=== PATIENT | female | born 1955 | race Caucasian/White ===

== ENCOUNTER 2022-05-14 04:32 | Day surgery (SDC) | payer OTHER, MEDICARE ==
[2022-05-10 09:04] VITALS: BMI 34.0
[~2022-05-14 04:32] MED LIST: BUPIVACAINE HCL/PF 0.5% (5MG/ML) 10 ML VIAL IJ ONE; IOHEXOL 180 MG/1 ML ML IJ ONE; LIDOCAINE HCL 1% PRESERVATIVE FREE - 30ML VIAL IJ ONE; TRIAMCINOLONE ACET 40MG/1ML VIAL IM ONE
[2022-05-14] MEDS ORDERED: TRIAMCINOLONE ACET 40MG/1ML VIAL ONE (07:12)
[2022-05-14] MEDS ORDERED: LIDOCAINE HCL/PF 1% SDV 5ML VIAL ONE (07:13)
[2022-05-14] MEDS ORDERED: BUPIVACAINE HCL/PF 0.5% (5MG/ML) 10 ML VIAL ONE (07:13)
[2022-05-14 11:36] VITALS: RESP 18
[2022-05-14] MEDS ORDERED: LIDOCAINE HCL 1% PRESERVATIVE FREE - 30ML VIAL IJ ONE (12:16)
[2022-05-14] MEDS ORDERED: BUPIVACAINE HCL/PF 0.5% (5MG/ML) 10 ML VIAL IJ ONE (12:16)
[2022-05-14] MEDS ORDERED: TRIAMCINOLONE ACET 40MG/1ML VIAL IM ONE (12:16)
[2022-05-14] MEDS ORDERED: IOHEXOL 180 MG/1 ML ML IJ ONE (12:16)
[2022-05-14 13:23] VITALS: BP 110/78; PULSE 70; TEMP 98
== END 2022-05-14 13:05 | disposition home or self-care (01) ==
LOC: JASU-SURG 04:32
PROVIDERS: ATTEND Pain Medicine Pain Medicine
PROC: 3E0U3BZ Introduction of Anesthetic Agent into Joints, Percutaneous Approach (ICD-10-PCS; 2022-05-14)
PROC: 3E0U33Z Introduction of Anti-inflammatory into Joints, Percutaneous Approach (ICD-10-PCS; principal; 2022-05-14 12:30)
DX: M53.3 Sacrococcygeal disorders, not elsewhere classified (principal)
CPT/HCPCS: 76000-TC-FY

== ENCOUNTER 2022-06-28 04:33 | Day surgery (SDC) | payer OTHER, MEDICARE ==
[2022-06-24 14:32] VITALS: BMI 34.0
[2022-06-28] MEDS ORDERED: LIDOCAINE HCL/PF 1% SDV 5ML VIAL ONE (07:42)
[2022-06-28] MEDS ORDERED: DEXAMETHASONE SOD PHOSPHATE 10 MG/1 ML VIAL ONE (07:42)
[2022-06-28 07:52] VITALS: RESP 20
[2022-06-28] MEDS ORDERED: LIDOCAINE HCL 1% PRESERVATIVE FREE - 30ML VIAL IJ ONE ×3 (10:07)
[2022-06-28] MEDS ORDERED: IOHEXOL 180 MG/1 ML ML IJ ONE ×3 (10:08→10:12)
[2022-06-28] MEDS ORDERED: DEXAMETHASONE SOD PHOSPHATE 10 MG/1 ML VIAL IVPUSH ONE (10:12)
[2022-06-28 11:14] VITALS: BP 155/76; PULSE 65; TEMP 97.8
== END 2022-06-28 11:17 | disposition home or self-care (01) ==
LOC: JASU-SURG 04:33
PROVIDERS: ATTEND Pain Medicine Pain Medicine
PROC: 3E0R3BZ Introduction of Anesthetic Agent into Spinal Canal, Percutaneous Approach (ICD-10-PCS; 2022-06-28)
PROC: 3E0R33Z Introduction of Anti-inflammatory into Spinal Canal, Percutaneous Approach (ICD-10-PCS; principal; 2022-06-28 09:00)
DX: M54.16 Radiculopathy, lumbar region (principal)
CPT/HCPCS: 76000-TC-FY; J1100

== ENCOUNTER 2022-07-26 04:00 | Day surgery (SDC) | payer OTHER, MEDICARE ==
[2022-07-22 12:48] VITALS: BMI 34.0
[2022-07-26] MEDS ORDERED: LIDOCAINE HCL/PF 2% SDV 5ML VIAL ONE (07:08)
[2022-07-26] MEDS ORDERED: LIDOCAINE HCL/PF 1% SDV 5ML VIAL ONE (07:08)
[2022-07-26] MEDS ORDERED: LIDOCAINE HCL 1% PRESERVATIVE FREE - 30ML VIAL IJ ONE ×2 (08:40)
[2022-07-26 09:40] VITALS: BP 137/63; PULSE 62; RESP 18; TEMP 98.7
== END 2022-07-26 09:40 | disposition home or self-care (01) ==
LOC: JASU-SURG 04:00
PROVIDERS: ATTEND Pain Medicine Pain Medicine
PROC: 01HY3MZ Insertion of Neurostimulator Lead into Peripheral Nerve, Percutaneous Approach (ICD-10-PCS; principal; 2022-07-26 08:00)
DX: G89.4 Chronic pain syndrome (principal); M96.1 Postlaminectomy syndrome, not elsewhere classified; M54.16 Radiculopathy, lumbar region
CPT/HCPCS: 64555; C1778

== ENCOUNTER 2022-08-06 04:20 | Day surgery (SDC) | payer OTHER, MEDICARE ==
[2022-08-02 17:42] VITALS: BMI 34.0
[~2022-08-06 04:20] MED LIST changes: -BUPIVACAINE HCL/PF 0.5% (5MG/ML) 10 ML VIAL IJ ONE; -IOHEXOL 180 MG/1 ML ML IJ ONE; +LIDOCAINE 1% P/F 10 MG/ML VIAL SNB ONE; -LIDOCAINE HCL 1% PRESERVATIVE FREE - 30ML VIAL IJ ONE; -TRIAMCINOLONE ACET 40MG/1ML VIAL IM ONE
[2022-08-06] MEDS ORDERED: LIDOCAINE HCL/PF 1% SDV 5ML VIAL ONE (07:19)
[2022-08-06] MEDS ORDERED: LIDOCAINE 1% P/F 10 MG/ML VIAL SNB ONE (08:49)
[2022-08-06 09:28] VITALS: RESP 18
[2022-08-06 09:57] VITALS: BP 151/73; PULSE 61; TEMP 97.9
== END 2022-08-06 10:30 | disposition home or self-care (01) ==
LOC: JASU-SURG 04:20
PROVIDERS: ATTEND Pain Medicine Pain Medicine
PROC: 01HY3MZ Insertion of Neurostimulator Lead into Peripheral Nerve, Percutaneous Approach (ICD-10-PCS; principal; 2022-08-06 08:00)
DX: G89.4 Chronic pain syndrome (principal); M25.561 Pain in right knee
CPT/HCPCS: 64555; C1778